=== PATIENT | male | born 2000 | race African-American/Black ===

== ENCOUNTER 2022-08-24 08:28 | Emergency (ER) | payer SELFPAY ==
[~2022-08-24] VITALS: Ht 177.8 cm; Wt 79.0 kg
[2022-08-24 08:36] VITALS: BP 146/85
[2022-08-24] MEDS ORDERED: AMOXICILLIN 500 MG CAPSULE PO ONE (10:45)
[2022-08-24] MEDS ORDERED: AMOX-494 MT (10:46)
[2022-08-24] MEDS ORDERED: AZIT250T12 MT (11:02)
== END 2022-08-24 11:14 | disposition home or self-care (01) ==
LOC: ER 08:33
DX: J03.90 Acute tonsillitis, unspecified (principal)
CPT/HCPCS: 99281; 99283